=== PATIENT | male | born 1980 | race Hispanic/Latino ===

== ENCOUNTER 2017-06-03 07:40 | Emergency (ER) | payer SELFPAY ==
[2017-06-03] MEDS ORDERED: predniSONE 20 MG TAB ONE (08:28)
== END 2017-06-03 08:41 | disposition home or self-care (01) ==
LOC: ERS 07:40
DX: L50.0 Allergic urticaria (principal); F17.210 Nicotine dependence, cigarettes, uncomplicated
CPT/HCPCS: 99282; J7506

== ENCOUNTER 2019-02-23 10:43 | Observation (INO) | payer SELFPAY ==
[2019-02-23 11:16] LABS: #Basophils 0.1 thou/uL (0.0-0.2); #Eosinphils 0.3 thou/uL (0.0-0.7); #Lymphocytes 3.5 thou/uL (1.20-3.40); #Monocytes 0.5 thou/uL (0.11-0.59); #Neutrophils 5.1 thou/uL (1.40-6.50); %Basophils 0.7 % (0.0-1.0); %Eosinophils 2.9 % (0.0-10.0); %Lymphocytes 37.1 % (21.0-51.0); %Monocytes 5.3 % (0.0-10.0); Hemoglobin 14.9 g/dL (14.0-18.0); Mean Corpuscular Hemoglobin 29.8 pg (27.0-31.0); Mean Corpuscular Volume 87.7 fL (78.0-98.0); Mean Platelet Volume 7.5 fL (7.4-10.4); Platelet Count 330 thou/uL (130-400); Red Blood Cell (RBC) Count 5.02 mill/uL (4.70-6.10); White Blood Cell (WBC) Count 9.4 thou/uL (4.8-10.8)
--- NOTE | 2019-02-23 11:28 | RAD ---
EXAM: Portable chest PROVIDED CLINICAL HISTORY: Chest pain COMPARISON: None FINDINGS: Cardiac and mediastinal silhouette is within normal limits. No focal consolidation, pleural fluid or pneumothorax evident. IMPRESSION: No evidence for an acute cardiopulmonary process.
[2019-02-23 11:39] LABS: ALT (SGPT) 26 U/L (8-55); AST (SGOT) 16 U/L (5-34); Albumin 4.3 g/dL (3.5-5.0); Alkaline Phosphatase 93 U/L (40-110); Anion Gap 15 mmol/L (10-20); BUN (Urea Nitrogen) 12 mg/dL (8.9-20.6); Bilirubin, Total 0.3 mg/dL (0.2-1.2); Calc. Creatinine Clearance 0 mL/min (70-130); Calcium 9.6 mg/dL (7.8-10.44); Carbon Dioxide 20 mmol/L (22-29); Chloride 107 mmol/L (98-107); Estimated GFR-MDRD 80; Globulin 2.8 g/dL (2.4-3.5); Glucose 100 mg/dL (70-105); Potassium 3.9 mmol/L (3.5-5.1); Protein, Total 7.1 g/dL (6.0-8.3); Sodium 138 mmol/L (136-145)
[2019-02-23] MEDS ORDERED: Ketorolac Tromethamine 30 MG/ML VIAL ONE (13:01)
[2019-02-23] MEDS ORDERED: Aspirin Chewable 81 MG TAB ONE (13:01)
[2019-02-23] MEDS ORDERED: Acetaminophen 500 MG TAB ONE (13:01)
--- NOTE | 2019-02-23 13:45 | PDOC.FPRHP ---
- History of Present Illness Chief Complaint: Chest pain History of Present Illness: 38 y/o M with no known past medical history presents to the ED with Chest pain that started this morning after running to his sons school a few blocks away from his house. He was frightened because he was told police were at the school campus for some reason. He states he became very SOB, diaphoretic during this episode. He describes the CP as crushing in nature, as someone "is standing on his chest." The pain went away when he got home and sat down to rest. Pt went to work, was climbing ladders and in an attic when he became Short of breath. Patient then drove home and was talked into coming to the emergency department. Patient states that he got very lightheaded and had palpitations when he arrived to the emergency department. This caused him to have a headache which he described as six out of 10 in intensity that is better now. The chest pain has range from a 5/10 to a 10 out of 10 in intensity, currently a five out of 10. ED Course: EKG: RBBB, T wave inversions negative trops negative D-Dimer CXR and labs WNL pt given Ketorolac, Tylenol and ASA - Allergies/Adverse Reactions Allergies Allergy/AdvReac Type Severity Reaction Status Date / Time No Known Allergies Allergy Verified 02/23/19 19:46 - Home Medications Medication Instructions Recorded Confirmed Type No Known 02/23/19 02/23/19 History - History PMHx: No known chronic medical problems. Heat stroke in 2015. PSHx: none FHx: Grandfather: DM, Small cell throat cancer Social: drinks 12 pack beer on weekend nights. Smokes about 1 pack of cigarettes weekly. prior 20 year smoking history. Smokes marijuana a couple of times a week. Walks daily. - Review of Systems General: denies: fever/chills, night sweats Eyes: denies: vision changes ENT: denies: nasal congestion Respiratory: reports: shortness of breath, exercise intolerance. denies: cough Cardiovascular: reports: chest pain, palpitation. denies: edema, paroxysmal nocturnal dyspnea, orthopnea Gastrointestinal: denies: nausea, vomiting, diarrhea, abdominal pain Skin: denies: rashes, lesions Musculoskeletal: denies: pain, tenderness Neurological: denies: syncope, seizure, weakness Psychological: reports: other (Pt was frightened by police presumptively being at [employer].) - Vital signs BP: 128/81 HR: 68 RR: 20 Tmax: 98.4 Pox: 100% on RA Wt: 124.7 kg - Physical Exam Constitutional: NAD, awake, alert and oriented, well developed HEENT: normocephalic and atraumatic, PERRLA, EOMI, conjunctiva clear, no scleral icterus, grossly normal vision, grossly normal hearing, MMM Neck: supple, FROM, trachea midline, no LAD, no JVD, no thyromegaly, no bruits Chest: no-tender to palpation, no lesions Heart: RRR, normal S1/S2, no murmurs/rubs/gallops, pulses present, no edema Lungs: CTAB, no respiratory distress, good air movement, no rales/rhonchi, no wheezing, no retractions Abdomen: soft, non-tender, bowel sounds present, no masses/distention Musculoskeletal: normal structure, normal tone, ROM grossly normal Neurological: no focal deficit, normal sensation, DTRs 2+ Skin: no rash/lesions, good turgor, capillary refill <2 seconds, no jaundice Heme/Lymphatic: no unusual bruising or bleeding, no purpura, no petechia, no LAD Psychiatric: normal mood and affect, good judgment and insight, intact recent and remote memory FMR H&P: Results - Labs Result Diagrams: 02/23/19 10:57 02/24/19 05:51 Lab results: WBC 9.4 thou/uL (4.8-10.8) 02/23/19 10:57 Hgb 14.9 g/dL (14.0-18.0) 02/23/19 10:57 Hct 44.0 % (42.0-52.0) 02/23/19 10:57 MCV 87.7 fL (78.0-98.0) 02/23/19 10:57 Plt Count 330 thou/uL (130-400) 02/23/19 10:57 Neutrophils % 54.0 % (42.0-75.0) 02/23/19 10:57 Sodium 138 mmol/L (136-145) 02/23/19 10:57 Potassium 3.9 mmol/L (3.5-5.1) 02/23/19 10:57 Chloride 107 mmol/L (98-107) 02/23/19 10:57 Carbon Dioxide 20 mmol/L (22-29) L 02/23/19 10:57 BUN 12 mg/dL (8.9-20.6) 02/23/19 10:57 Creatinine 1.03 mg/dL (0.7-1.3) 02/23/19 10:57 Glucose 100 mg/dL (70-105) 02/23/19 10:57 Calcium 9.6 mg/dL (7.8-10.44) 02/23/19 10:57 Total Bilirubin 0.3 mg/dL (0.2-1.2) 02/23/19 10:57 AST 16 U/L (5-34) 02/23/19 10:57 ALT 26 U/L (8-55) 02/23/19 10:57 Alkaline Phosphatase 93 U/L (40-110) 02/23/19 10:57 B-Natriuretic Peptide 16.8 pg/mL (0-100) 02/23/19 10:57 Serum Total Protein 7.1 g/dL (6.0-8.3) 02/23/19 10:57 Albumin 4.3 g/dL (3.5-5.0) 02/23/19 10:57 - EKG Interpretation EKG: RBBB, T-wave inversions - Radiology Interpretation Chest x-ray Status: report reviewed by me (no acute process.) FMR H&P: A/P - Problem List (1) Exertional angina Current Visit: Yes Status: Acute Code(s): I20.8 - OTHER FORMS OF ANGINA PECTORIS - Plan 38 y/o M admitted to tele obs for Exertional Angina to r/o ACS. 1. Exertional Angina - CP brought on by exertion, SOB, diaphoresis, centrally located, crushing pressure. - Risk stratify: A1C, FLP, TSH. - Exercise stress test ordered, NPO at midnight - TT Echo ordered - X2 Trops negative, will trend X3 - D-dimer negative - EKG: RBBB, T-wave inversions in inferior leads. 2. Alcohol use disorder - Patient drinks 12 beer on weekend nights - [facility] protocol initiated 3. Tobacco use disorder - 20 year hx of tobacco use - Down to smoking 1 pack per week. - Cessation counseling 4. Marijuana use disorder - Smokes marijuana a couple times a week. - Cessation counseling Code status: Full Code Diet: HH, NPO after midnight DVT ppx: SCD's Dispo: Stable, admit to tele obs for ACS r/o and risk stratification. FMR H&P: Upper Level - Pertinent history 38 y/o M with no known PMHx presents to ED complaining of chest pain. This AM he found out the police were at his sons school so he sprinted there. He reports its about 2 houses down. He then came back afterwards and was in his house and got a squeezing, substernal chest pain for a couple of minutes that didn't radiate with associated diaphoresis. He reports it went away with rest and then he went to work. While he was at work a coworker commented that he didn 't look good. So later when the chest pain returned he decided to come to the ED. He reports it has been coming and going all day and is worse with exertion and relieved with rest. He has a h/o cocaine and marijuana use, last used cocaine about a week and a half ago. He also smokes about 1 pack per week of cigarettes and drinks a 12 pack of beer socially, not daily. - Pertinent findings Vitals: BP: 117/79, Pulse: 66, Resp: 20, Temp: 98.8 (Oral), Pain: 0, O2 sat: 100 on Room Air PE: Gen - alert, oriented, resting comfortably on room air CV - bradycardic, regular rhythm, no murmurs Lungs - CTAB, no wheezes Chest - TTP over sternum and anterior ribs Abd - protuberant, soft, NTTP Labs: Trop < 0.010 CXR - no acute process - Plan Date/Time: 02/23/19 1345 I, Ebony Meléndez MD, PGY-3, have evaluated this patient and agree with findings/ plan as outlined by validation intern resident. Pertinent changes/additions are listed here. 1. Anginal Chest Pain Pt with heart score of 3, but very typical sounding chest pain. Only inconsistency is reproducible to palpation. -Will risk stratify with FLP and A1c -Make NPO after midnight and stress test tomorrow -Echo -Nitro prn -Aspirin -Repeat EKG for any new or worsening chest pain -Trend troponins 2. Polysubstance abuse -District Administrative Assistant on cessation -ASE protocol Dipso: Obs on tele LOS: likely less than 48 hours Diet: HH, NPO after midnight VTE ppx: SCD's Addendum - Attending - Attending Attestation Date/Time: 02/24/19 0875 I personally evaluated the patient and discussed the management with Dr. Redman and Medhat. I agree with the History, Examination, Assessment and Plan documented above with any addition or exceptions noted below. Plan for stress test in AM. Further management pending.
[2019-02-23 14:41] LABS: Troponin I Less than 0.010 ng/mL (< 0.028)
[2019-02-23 16:39] LABS: Troponin I 0.012 ng/mL (< 0.028)
[2019-02-23] MEDS ORDERED: Acetaminophen 325 MG TAB PO PRN (17:59)
[2019-02-23] MEDS ORDERED: Nitroglycerin 0.4 MG TAB (25 Tab Bottle) PO PRN (17:59)
[2019-02-23] MEDS ORDERED: Ondansetron ODT 4 MG TAB PO PRN (17:59)
[2019-02-23 18:08] VITALS: BMI 45.8
[2019-02-23 18:47] LABS: Hemoglobin A1c 5.5 % (4.0-6.0)
[2019-02-23 19:01] LABS: Cardiac Risk 4.9 (Less than 4.5)
--- NOTE | 2019-02-24 06:24 | PDOC.FM ---
- Subjective Subjective: No acute overnight events. Tele monitoring overnight NSR rate 40-70's. Denies CP, SOB, N/V. C/o slight headache overnight. - Objective MAR Reviewed: Yes Vital Signs & Weight: Vital Signs (12 hours) Temp Pulse Resp BP BP Pulse Ox 02/24/19 03:15 97.9 F 53 L 15 111/61 111/61 97 02/23/19 23:52 116/66 02/23/19 23:10 98.1 F 58 L 19 116/66 99 02/23/19 20:00 127/76 02/23/19 19:33 97.6 F 61 20 127/76 99 Weight Weight 116.21 kg I&O: 02/22/19 02/23/19 02/24/19 06:59 06:59 06:59 Intake Total 290 Output Total 650 Balance -360 Result Diagrams: 02/23/19 10:57 02/24/19 05:51 Phys Exam - Physical Examination Constitutional: NAD HEENT: PERRLA, moist MMs, sclera anicteric Neck: no nodes, no JVD, supple, full ROM Respiratory: no wheezing, no rales, no rhonchi, clear to auscultation bilateral Cardiovascular: RRR, no significant murmur, no rub Gastrointestinal: soft, non-tender, no distention, positive bowel sounds Musculoskeletal: no edema, pulses present Neurological: non-focal, normal sensation, moves all 4 limbs Lymphatic: no nodes Psychiatric: normal affect, A&O x 3 Skin: no rash, normal turgor, cap refill <2 seconds Dx/Plan (1) Exertional angina Code(s): I20.8 - OTHER FORMS OF ANGINA PECTORIS Status: Acute (2) Alcohol use Code(s): Z72.89 - OTHER PROBLEMS RELATED TO LIFESTYLE Status: Acute (3) Tobacco use disorder Code(s): F17.200 - NICOTINE DEPENDENCE, UNSPECIFIED, UNCOMPLICATED Status: Acute (4) Marijuana use Code(s): F12.90 - CANNABIS USE, UNSPECIFIED, UNCOMPLICATED Status: Acute (5) High triglycerides Code(s): E78.1 - PURE HYPERGLYCERIDEMIA Status: Acute - Plan Plan: 38 y/o M admitted to tele obs for Exertional Angina to r/o ACS. 1. Exertional Angina - CP brought on by exertion, SOB, diaphoresis, centrally located, crushing pressure. - Risk stratify: A1C 5.5; FLP: Tri 287, T Chol 178, LDL 85, HDL 36; TSH: 1.4593 - Exercise stress test ordered, NPO at midnight - TT Echo ordered - X3 Trops negative - D-dimer negative - EKG: RBBB, T-wave inversions in inferior leads. - ASCVD risk 5% for 10 years. Recommended Mod dose of statin therapy. Added Atorvastatin 40 mg Qhs. 2. Alcohol use disorder - Patient drinks 12 beer on weekend nights - [facility] protocol initiated 3. Tobacco use disorder - 20 year hx of tobacco use - Down to smoking 1 pack per week. - Cessation counseling 4. Marijuana use disorder - Smokes marijuana a couple times a week. - Cessation counseling 5. Elevated Triglycerides - Tri 287 - T Chol 178, LDL 85, HDL 36 - Added Atorvastatin Code status: Full Code Diet: HH, NPO after midnight DVT ppx: SCD's Dispo: Stable, admit to tele obs for ACS r/o and risk stratification. Addendum - Attending - Attending Attestation Date/Time: 02/24/19 7205 I personally evaluated the patient and discussed the management with Dr. Redman. I agree with the History, Examination, Assessment and Plan documented above with any addition or exceptions noted below. Pt's chest pain has resolved. Awaiting stress test results and if negative, pt can d/c home.
[2019-02-24 06:38] LABS: Anion Gap 9 mmol/L (10-20); BUN (Urea Nitrogen) 12 mg/dL (8.9-20.6); Calc. Creatinine Clearance 163 mL/min (70-130); Calcium 8.6 mg/dL (7.8-10.44); Carbon Dioxide 24 mmol/L (22-29); Chloride 108 mmol/L (98-107); Estimated GFR-MDRD 84; Glucose 88 mg/dL (70-105); Potassium 4.2 mmol/L (3.5-5.1); Sodium 137 mmol/L (136-145)
[2019-02-24] MEDS ORDERED: Aspirin 81 mg Enteric Coated Tablet PO SCH (09:00)
[2019-02-24 12:11] VITALS: BP 109/72; TEMP 98.8
[2019-02-24] MEDS ORDERED: Atorvastatin Calcium 40 MG TAB PO SCH (21:00)
--- NOTE | 2019-02-25 03:50 | DIS ---
DATE OF ADMISSION: 02/23/2019 DATE OF DISCHARGE: 02/24/2019 RESIDENT: Althea Redman D.O. ADMITTING ATTENDING: Dr. Greenberg. DISCHARGE ATTENDING: Dr. Moya DISCHARGE MEDICATIONS: 1. Atorvastatin 40 mg p.o. at bedtime daily. 2. Aspirin 81 mg p.o. daily. DISCHARGE DIAGNOSES: 1. Angina and dyspnea on exertion, most likely secondary to deconditioning. 2. High triglycerides. 3. ASCVD score 5% risk. PROCEDURES PERFORMED: Exercise stress test with normal cardiac perfusion. HISTORY OF PRESENT ILLNESS/HOSPITAL COURSE: Katharine Adkins is a 38-year-old male with no known prior medical problems. He came to the emergency department after having angina on exertion, also shortness of breath with exertion. The patient's EKG is unremarkable with a right bundle branch block but no ST elevation. His troponins were negative. Negative D-dimer. Labs were within normal limits, as well as chest x-ray. A1c 5.5. Fasting lipid panel, triglycerides 287, total cholesterol 178 , LDL 85, HDL 36. TSH 1.4593. The patient was risk stratified with an ASCVD score of 5%, 10 year risk mortality rate, recommended a moderate intensity statin therapy of atorvastatin 40 mg p.o. daily. The patient does not have a primary care physician and decided to follow up with [facility] after this hospitalization to treat his now known medical problems of high triglycerides and polysubstance abuse disorder. He admitted to using cocaine, marijuana, and alcohol pretty heavily and frequently. The patient counseled on the risk of this issues, especially regarding cardiovascular risk. The patient counseled on diet and exercise. The patient underwent an exercise stress test, which was normal. He was cleared for discharge as ACS was ruled out. The patient was agreeable for discharge plan and stable upon discharge to the hospital. DISCHARGE INSTRUCTIONS: 1. Location: Home. 2. Activity: As tolerated. 3. Diet: Heart healthy. 4. Followup: Follow up with primary care in 1 week's time with [facility]. Job ID: [id number] MTDD
[2019-02-25] MEDS ORDERED: Aspirin 325 mg Enteric Coated Tablet PO SCH ×2 (09:00)
--- NOTE | 2019-02-26 14:14 | STRESS ---
Acquisition Time: 2019-02-24 10:52:04 Total Exercise Time: 00:10:00 Test Indications: CHEST PAIN Medications: Protocol: AZUCENA Max HR: 157 BPM 87% of Pred: 180 BPM Max BP: 118/070 mmHG Max Work Load: 13.4 METS THE PATIENT EXERCISED FOR 10:00 ON A AZUCENA PROTOCOL. PEAK HEAR RATE= 158 BPM AND TARGET HEART RATE= 153 BPM. HE DID NOT DEVELOP CHEST PAIN. THERE WAS NO SIGNIFICANT ST DEPRESSION. NEGATIVE EXERCISE TREADMILL TEST. Confirmed by ASHLEY HOOKER ([id number]), loan expeditor RASHAAD ULLOA ([id number]) on 02/26/2019 2:14:16 PM Referred By: DO Ayanna GARCIA Confirmed By:ASHLEY HOOKER
--- NOTE | 2019-02-28 10:39 | EKG ---
Test Reason : Blood Pressure : / mmHG Vent. Rate : 075 BPM Atrial Rate : 075 BPM P-R Int : 142 ms QRS Dur : 106 ms QT Int : 382 ms P-R-T Axes : 046 -22 -13 degrees QTc Int : 426 ms Normal sinus rhythm Incomplete right bundle branch block Moderate voltage criteria for LVH, may be normal variant Inferior T wave inversion Borderline ECG Confirmed by DAMIAN CENTENO, JOVANI ([id number]), health editor MARLEE SINGLETON ([id number]) on 02/28/2019 10:38:30 AM Referred By: Confirmed By:JOVANI SALGADO MD
== END 2019-02-24 13:15 | disposition home or self-care (01) ==
LOC: ERS 10:43 → ERHOLD 13:00 → 2SW 17:43
PROVIDERS: ADMIT Family Medicine; ATTEND Family Medicine
DX: I20.8 Other forms of angina pectoris (principal); F17.210 Nicotine dependence, cigarettes, uncomplicated; F14.10 Cocaine abuse, uncomplicated; E78.1 Pure hyperglyceridemia; F12.10 Cannabis abuse, uncomplicated
CPT/HCPCS: 36415; 71045; 80048; 80053; 80061; 83036; 83880; 84443; 84484; 85025; 85379; 90471; 90732; 93005; 93017; 93306; 96374; G0009; G0378; J1885

== ENCOUNTER 2020-10-20 10:05 | Emergency (ER) | payer SELFPAY ==
[2020-10-20] MEDS ORDERED: Metoclopramide HCl 10 MG/2 ML VIAL ONE (10:30)
[2020-10-20 11:47] LABS: Acetaminophen Less than 6.0 mcg/mL (10.0-30.0); Alcohol Less than 10 mg/dL (Less than 10); Salicylate Less than 8.0 mg/dL (15.0-30.0)
== END 2020-10-20 12:43 | disposition home or self-care (01) ==
LOC: ERS 10:05
DX: T63.441A Toxic effect of venom of bees, accidental (unintentional), initial encounter (principal); F17.210 Nicotine dependence, cigarettes, uncomplicated
CPT/HCPCS: 36415; 70450; 80307; 93005; 96365; 96366; J2765

== ENCOUNTER 2020-11-23 07:25 | Emergency (ER) | payer SELFPAY ==
[2020-11-23] MEDS ORDERED: Ketorolac Tromethamine 30 MG/ML VIAL ONE (09:16)
== END 2020-11-23 09:46 | disposition home or self-care (01) ==
LOC: ERS 07:25
DX: J20.9 Acute bronchitis, unspecified (principal); F17.210 Nicotine dependence, cigarettes, uncomplicated
CPT/HCPCS: 96372; 99283; J1885

== ENCOUNTER 2021-06-05 13:54 | Emergency (ER) | payer SELFPAY | END 2021-06-05 15:36 | disposition left against medical advice (07) | LOC: ERS 13:54 | DX: Z53.21 Procedure and treatment not carried out due to patient leaving prior to being seen by health care provider (principal) ==

== ENCOUNTER 2021-06-06 07:13 | Emergency (ER) | payer SELFPAY ==
[2021-06-06] MEDS ORDERED: Morphine 4 MG/ML VIAL ONE (08:05)
[2021-06-06] MEDS ORDERED: Ondansetron ODT 4 MG TAB ONE (08:05)
[2021-06-06] MEDS ORDERED: Diazepam 5 MG TAB ONE (08:05)
[2021-06-06] MEDS ORDERED: Ketorolac Tromethamine 30 MG/ML VIAL ONE (08:05)
== END 2021-06-06 08:38 | disposition home or self-care (01) ==
LOC: ERS 07:13
DX: M54.50 Low back pain, unspecified (principal); F17.210 Nicotine dependence, cigarettes, uncomplicated
CPT/HCPCS: 72128; 72131; 96372; J1885; J2270; Q0162

== ENCOUNTER 2022-03-22 14:13 | Emergency (ER) | payer SELFPAY | END 2022-03-22 17:10 | disposition home or self-care (01) | LOC: ERS 14:13 | DX: J11.1 Influenza due to unidentified influenza virus with other respiratory manifestations (principal); R00.0 Tachycardia, unspecified; F17.210 Nicotine dependence, cigarettes, uncomplicated | CPT/HCPCS: 71045; 87804; 94640; J7620 ==

== ENCOUNTER 2022-09-24 11:46 | Emergency (ER) | payer SELFPAY ==
[2022-09-24] MEDS ORDERED: methylPREDNISolone Sod Succ/PF 125 MG/2 ML VIAL ONE (12:48)
[2022-09-24] MEDS ORDERED: diphenhydrAMINE 50 MG/ML VIAL ONE (12:48)
[2022-09-24] MEDS ORDERED: EPINEPHrine 1 MG/ML VIAL ONE (12:50)
== END 2022-09-24 15:58 | disposition home or self-care (01) ==
LOC: ERS 11:46
DX: T78.40XA Allergy, unspecified, initial encounter (principal); F17.210 Nicotine dependence, cigarettes, uncomplicated
CPT/HCPCS: 96372; 96374; 96375; J0171; J1200; J2930

== ENCOUNTER 2025-05-17 18:49 | Emergency (ER) | payer SELFPAY | END 2025-05-17 20:02 | disposition home or self-care (01) | LOC: ERS 18:49 | DX: B34.9 Viral infection, unspecified (principal); F17.210 Nicotine dependence, cigarettes, uncomplicated | CPT/HCPCS: 87428; 99283 ==

== ENCOUNTER 2025-05-18 23:29 | Emergency (ER) | payer SELFPAY ==
[2025-05-19] MEDS ORDERED: Dexamethasone 10 MG/ML VIAL ONE (02:16)
[2025-05-19] MEDS ORDERED: Ibuprofen 800 MG TAB ONE (02:16)
== END 2025-05-19 02:36 | disposition home or self-care (01) ==
LOC: ERS 23:29
DX: J18.9 Pneumonia, unspecified organism (principal); F17.210 Nicotine dependence, cigarettes, uncomplicated
CPT/HCPCS: 71045; 87081; 87428; 87430; J1100